=== PATIENT | male | born 1950 | race Caucasian/White ===

== ENCOUNTER 2017-06-16 18:03 | Emergency (ER) | payer OTHER ==
[~2017-06-16] VITALS: Ht 180.3 cm; Wt 54.5 kg
[~2017-06-16 18:03] MED LIST: DILT60CA PO; DSS100 PO; LEVE500T8 PO; METO25 PO; MULT-1239 PO; OMEP10 PO; PHEN100C23 PO; PRED5 PO
[2017-06-16 18:46] VITALS: BP 120/62
== END 2017-06-16 19:45 | disposition left against medical advice (07) ==
LOC: EMS 18:06
DX: G40.909 Epilepsy, unspecified, not intractable, without status epilepticus (principal); F17.210 Nicotine dependence, cigarettes, uncomplicated; I10 Essential (primary) hypertension; E78.00 Pure hypercholesterolemia, unspecified
CPT/HCPCS: 99283; 99406